=== PATIENT | female | born 1960 | race American Indian/Alaskan Native ===

== ENCOUNTER 2022-01-26 16:05 | Emergency (ER) | payer OTHER ==
--- NOTE | 2022-01-26 16:12 | Emergency Department Report ---
ED General Adult HPI - General Chief complaint: Altered Mental Status Stated complaint: where am i Time Seen by Provider: 01/26/22 16:06 Source: patient, EMS (Verbal report received from emergency medical services. EMS documentation not available at time of chart dictation ), RN notes reviewed (Nursing notes unavailable at my time to review) Mode of arrival: Stretcher Limitations: Altered Mental Status - History of Present Illness Initial comments: The patient was evaluated in the emergency department for symptoms described in the history of present illness. He/she was evaluated in the context of the global COVID-19 pandemic, which necessitated consideration that the patient might be at risk for infection with the virus that causes COVID-19. Institutional protocols and algorithms that pertain to the evaluation of patients at risk for COVID-19 are in a state of rapid change based on information released by regulatory bodies including the CDC and federal and state organizations. These policies and algorithms were followed during the patient's care in the emergency department. Please note that these policies, procedures and recommendations changed on a rapid basis. This is a 61-year-old female. She may have a past medical history of TIA or stroke. The details of the remainder of her past medical history are unclear at this time. She is brought to the hospital by emergency medical services with an EMS articulated complaint of confusion, speech disturbance, left-sided weakness, possible code stroke. EMS reports normal Accu-Chek and unremarkable vital signs in the field. In the emergency room, the patient has an unremarkable and appropriate Accu-Chek. The patient is awake, moving 4 extremities, without facial droop, and she is able to clearly enunciate her own name and her family members name. The patient denies physical pain. EMS reports to myself that the patient is moving her left side appears much improved than when compared to her initial presentation. At the moment, the patient is confused, and not able to describe the qualitative nature of symptoms, exacerbating factors, relieving factors or aggravating factors. At the moment, she is not accompanied by friends or family for collateral information or additional history. EMS reports last known well time is approximately 30 minutes PT arrival to this emergency department -: This evening Location: left, upper extremity Consistency: other Improves with: other Worsens with: other Associated Symptoms: other - Related Data Previous Rx's Medication Instructions Recorded Last Taken Type Aspirin [Aspirin BABY CHEW TAB] 81 mg PO QDAY #30 tab.chew 09/11/22 Unknown Rx Allergies Allergy/AdvReac Type Severity Reaction Status Date / Time lisinopril Allergy Angioedema Verified 01/26/22 16:47 Sulfa (Sulfonamide Allergy Unknown Verified 01/26/22 16:46 Antibiotics) ED Review of Systems ROS: Stated complaint: STROKE Other details as noted in HPI Comment: Unobtainable due to pts medical conditions (Patient denies physical pain. Review of systems as per EMS) Neurological: weakness, confusion ED Past Medical Hx - Medications Home Medications: Home Medications Medication Instructions Recorded Confirmed Last Taken Type Aspirin [Aspirin BABY CHEW TAB] 81 mg PO QDAY #30 tab.chew 01/26/22 Unknown Rx ED Physical Exam - General Limitations: Altered Mental Status General appearance: in no apparent distress, anxious, obese - Head Head exam: Present: atraumatic, normocephalic - Eye Eye exam: Present: normal appearance, EOMI. Absent: nystagmus - ENT ENT exam: Present: normal exam, normal orophraynx, mucous membranes moist, no rmal external ear exam - Neck Neck exam: Present: normal inspection, full ROM. Absent: tenderness, meningismus - Respiratory Respiratory exam: Present: normal lung sounds bilaterally. Absent: respiratory distress, wheezes, rales, rhonchi, stridor, decreased breath sounds - Cardiovascular Cardiovascular Exam: Present: regular rate, normal rhythm, normal heart sounds. Absent: bradycardia, tachycardia, irregular rhythm, systolic murmur, diastolic murmur, rubs, gallop - GI/Abdominal GI/Abdominal exam: Present: soft. Absent: distended, tenderness, guarding, rebound, rigid, pulsatile mass - Extremities Exam Extremities exam: Present: normal inspection, other (2+ pulses noted in the bilateral upper and lower extremities. There is no palpable cord. negative Homans sign. Muscular compartments are soft. The pelvis is stable.). Absent: pedal edema, calf tenderness - Back Exam Back exam: Present: normal inspection. Absent: tenderness, CVA tenderness (R), CVA tenderness (L), paraspinal tenderness, vertebral tenderness - Neurological Exam Neurological exam: Present: altered (Patient is awake and alert to name and follows commands. She is able to clearly enunciate her own name at her daughter's name.), other (There is no facial droop. The tongue is midline. EOMI. 5 out of 5 strength in 4 extremities. Sensation is intact to light touch in 4 extremities.) - Psychiatric Psychiatric exam: Present: flat affect - Skin Skin exam: Present: warm, dry, intact, normal color. Absent: rash ED Course Vital Signs 01/26/22 01/26/22 01/26/22 16:41 16:48 16:52 Temperature 98.8 F Pulse Rate 80 77 Respiratory 14 13 Rate Blood Pressure 109/62 O2 Sat by Pulse 95 95 95 Oximetry 01/26/22 01/26/22 01/26/22 17:00 17:16 17:30 Temperature Pulse Rate 80 99 H 73 Respiratory 13 24 12 Rate Blood Pressure 112/63 106/62 94/58 O2 Sat by Pulse 95 97 97 Oximetry 01/26/22 01/26/22 01/26/22 17:46 18:00 18:15 Temperature Pulse Rate 76 80 82 Respiratory 15 17 15 Rate Blood Pressure 91/58 114/70 96/63 O2 Sat by Pulse 94 96 96 Oximetry 01/26/22 18:30 Temperature Pulse Rate 79 Respiratory 15 Rate Blood Pressure 96/63 O2 Sat by Pulse 95 Oximetry - Reevaluation(s) Reevaluation #1: 01/26/22 16:44 Differential diagnosis, including but not limited to: TIA, pneumonia, UTI, electrolyte derangement, thyroid derangement, conversion disorder Assessment and plan: 61-year-old female with nonspecific alteration in mental status, protecting airway, awake to name, following commands, not in any acute distress without meningeal signs. She does not appear to have a disabling acute neurologic deficit that would require emergent tPA. Patient seen in conjunction with stroke neurology, Dr. Leslie, who agrees with this plan of care. CT scan brain, CT angiogram head and neck pending, x-ray of the chest shows nonspecific infiltrates. Urinalysis, laboratory studies pending. Reassess after initial data points. Patient likely will be admitted to our medical service for TIA versus encephalopathy. 01/26/22 17:05 Daughter at bedside. She endorses that mother appears to be at baseline The patient herself endorses no acute complaints. The patient is a [facility] patient, her [facility] #[id number] Home medications include losartan, Norvasc, cholesterol medicine, vitamin C Gummies, and alternating prednisone, 5 mg, 2.5 mg, etc. She has a history of chronic sarcoid. As per daughter, there are no COVID concerns and the patient is COVID-19 vaccinated. As per daughter, no fever, chills, nausea, vomiting, diarrhea. Patient is compliant with her medications. Daughter reports that the patient has a history of TIA, and that she is back to her baseline. The patient endorses this and feels like she is back to her baseline as well. 01/26/22 17:37 xr chest shows chronic sarcoid, she has clear lungs and is saturating at 98% on room air. both patient and daughter endorse no respiratory symptoms CT angiogram head and neck negative. CT scan brain negative. Urinalysis pending. Have placed a call to [facility]. Awaiting callback from [facility]. Awaiting urinalysis at this time 01/26/22 17:51 Discussed the patient's history, physical, laboratory studies and imaging studies with covering [facility] physician, Dr. Griffin Because patient is a [facility] patient, she will be likely transported to one of the [facility] facilities. I discussed this with the patient and family member, who are agreeable to this plan of care. Currently, the patient is stable for transfer for continuity of care. Should a bed not be available in a timely fashion within the next 2 hours, then patient is to remain here. Reevaluation #2: 01/26/22 19:38 Urinalysis not suggestive of UTI. Patient remains unchanged. Patient to be transported to [facility]. Patient daughter updated 01/26/22 20:22 Patient and daughter now states that they do not want to be transferred. They are going to leave AGAINST MEDICAL ADVICE. I discussed the risks, of leaving, including , disability, paralysis, loss of quality of life, and stroke. I discussed this with the patient and daughter. The patient in my opinion does not understand the implications of her actions. However, her daughter is at the bedside, indicates that she will make decisions for the daughter, Ms Reilly Seth. The patient's daughter is awake, alert, oriented, of sound mind, and exhibits decision-making capacity. The aforementioned risks of leaving AMA are discussed with the patient's daughter, patient, with nurse Alma Souza, present as a witness. [facility] is updated. They will try to get her a follow-up appointment tomorrow. Discussed with patient and daughter that they may return to the emergency room at any point time, if they so desire 01/26/22 20:24 ED Medical Decision Making - Lab Data Result diagrams: 01/26/22 16:50 01/26/22 16:50 - EKG Data -: EKG Interpreted by Me EKG shows normal: sinus rhythm - EKG Data When compared to previous EKG there are: previous EKG unavailable 01/26/22 16:45 The EKG is interpreted at 16: 33 Sinus rhythm, with a rate of 76 bpm. Normal axis, normal P wave axis, QTC 4 5 4 ms, and left ventricular hypertrophy. There is poor R wave progression. There are nonspecific T wave abnormalities. This is an abnormal EKG. This is not a STEMI. There is no prior for comparison - Radiology Data Radiology results: pending, report reviewed, image reviewed CTA HEAD WITH CONTRAST 01/26/2022 HISTORY: Confusion, left-sided weakness, now resolved. COMPARISON: None. TECHNIQUE: All CT scans at this location are performed using CT dose reduction for ALARA by means of automated exposure control.. 3-D/MIP reformats postprocessed. Percentage stenosis is determined by direct quantitative measurements of diseased internal carotid artery diameter compared with normal distal internal carotid artery reference segments or by criteria similar to NASCET where applicable. CONTRAST: 100 ml of Omnipaque 350 FINDINGS: CTA HEAD: Intracranial vertebral arteries: No significant abnormality. Basilar artery: No significant abnormality. Posterior cerebral arteries: No significant abnormality. Intracranial internal carotid arteries: No significant abnormality. Anterior cerebral arteries: No significant abnormality. Middle cerebral arteries: No significant abnormality. Dural venous sinuses:Not optimally opacified. No significant abnormality. Additional findings: None. IMPRESSION: 1. No significant abnormality. Signer Name: Luiz Josue MD Signed: 01/26/2022 4:02 PM Workstation Name: [id number] CHEST 1 VIEW 01/26/2022 4:30 PM INDICATION / CLINICAL INFORMATION: Confusion with TIA. COMPARISON: None available. FINDINGS: SUPPORT DEVICES: None. HEART / MEDIASTINUM: No significant abnormality. LUNGS / PLEURA: Increased interstitial prominence with bilateral pulmonary opacities No pneumothorax. Signer Name: Johnnie Hess MD Signed: 01/26/2022 3:41 PM Workstation Name: [id number] CT BRAIN: 01/26/2022 INDICATION / CLINICAL INFORMATION: TIA, left-sided deficits, now resolved. COMPARISON: None available. FINDINGS: BRAIN/INTRACRANIAL STRUCTURES: Unenhanced CT images of the brain demonstrate no evidence of acute abnormality. Ventricles and sulci are prominent in size, consistent with diffuse cerebral atrophy. Extensive chronic white matter hypoattenuation is present throughout the cerebral hemispheric white matter. There is evidence of chronic lacunar changes in the basal ganglia and thalami bilaterally. There are no abnormal extra-axial fluid collections. There is no evidence of hemorrhage. EXTRACRANIAL STRUCTURES: Unremarkable. IMPRESSION: No evidence of acute abnormality. Extensive chronic changes. All CT scans at this location are performed using dose reduction to ALARA by means of automated exposure control. Signer Name: Luiz Josue MD Signed: 01/26/2022 3:57 PM CTA NECK WITH CONTRAST 01/26/2022 INDICATION / CLINICAL INFORMATION: Left-sided deficits, now resolved and confusion. COMPARISON: None. TECHNIQUE: Routine CTA of the neck is performed. 3-D/MIP reformats were postprocessed. Percentage stenosis is determined by direct quantitative measurements of diseased internal carotid artery diameter compared with normal distal internal carotid artery reference segments or by criteria similar to NASCET where applicable. All CT scans at this location are performed using CT dose reduction for ALARA by means of automated exposure control. CONTRAST: 100 ml of Omnipaque 350 FINDINGS: Carotid bifurcations: No significant abnormality. Carotid arteries: Tortuosity of cervical internal carotid arteries noted. Otherwise unremarkable Cervical vertebral arteries: No significant abnormality. Aortic arch: No significant abnormality. None. IMPRESSION: No significant abnormality. Signer Name: Luiz Josue MD Signed: 01/26/2022 3:59 PM Workstation Name: [id number] Critical care attestation.: If time is entered above; I have spent that time in minutes in the direct care of this critically ill patient, excluding procedure time. ED Disposition Clinical Impression: TIA (transient ischemic attack) Disposition: 07 LEFT AGAINST MEDICAL ADVICE Is pt being admited?: No Does the pt Need Aspirin: No Condition: Undetermined Instructions: Transient Ischemic Attack, [id number] Additional Instructions: As we discussed, you have left the hospital/emergency room AGAINST MEDICAL ADVICE. By leaving, you risked , disability, paralysis, permanent loss of quality of life. The ER is open 24 hours a day, 7 days a week. It never closes. Please return to the emergency room right away if and when you change your mind. If you decide not to return to the emergency room, please follow-up with the listed physician referrals as soon as possible. Referrals: ERIC PEREZ MD [Staff Physician] - [facility] [Provider Group] - [facility] Forms: AMA Form
--- NOTE | 2022-01-26 16:34 | Emergency Department Report ---
Blank Doc - Documentation Documentation: [facility] Consult Note # Demographics Consult Type: Acute Stroke Level 1 (0-4.5 hrs) Patient Location: Emergency Room First Name: Melvina Last Name: Jw Date of : 1960 Age: 61 Gender: Female Facility: [facility] Time of Initial Page (Eastern Time): 01/26/2022, 16:06 Time of Return Call (Eastern Time): 01/26/2022, 16:06 # HPI History: 61 year old female who presents with dysarthria and AMS. EMS felt there was left sided weakness but none noted by ED provider. Patient poor historian, states she presents as she is not feeling well. Not able to provide more history than that. Last Known Normal: 30 mins ago # Scores Level of Consciousness 1a: [0] = Alert; keenly responsive LOC Questions 1b: [1] = Answers one correctly LOC Commands 1c: [0] = Performs both tasks correctly Best Gaze 2: [0] = Normal Visual 3: [0] = No visual loss Facial Palsy 4: [0] = Normal symmetrical movements Motor Arm Left 5a: [0] = No drift Motor Arm Right 5b: [0] = No drift Motor Leg Left 6a: [0] = No drift Motor Leg Right 6b: [0] = No drift Limb Ataxia 7: [0] = Absent Sensory 8: [0] = Normal Best Language 9: [0] = No aphasia Dysarthria 10: [0] = Normal Extinction and Inattention 11: [0] = No abnormality NIHSS Total: 1 # Exam Additional Exam Findings: slow to respond but answers all questions appropriately. Slightly confused. # PMH-FH-SH Past Medical History: hypertension Social History: non-smoker non-drinker no drugs lives with family # Data Head CT: no bleed preliminarily reviewed by me, please refer to radiology read for official reading # Assessment Impression: Non-focal exam with mainly AMS type of a picture. Follows commands and answers questions for the most part. No focality noted on exam. Does not meet tpa criteria. Differential broad: toxic/metabolic/infection vs. stroke. # Plan Thrombolytic/Intervention: NOT IV Thrombolysis or IA Intervention candidate Thrombolytic Exclusion (< 3 hour window): Individualized disability discussion had with the patient and/or family, and they have determined the current deficits to be non-disabling and do not wish to proceed with thrombolytic Intraarterial Exclusion: cta pending Blood Pressure Management: IV fluid bolus Target Blood Pressure: SBP < 220 DBP < 105 Labs: CBC comprehensive metabolic panel hemoglobin A1c lipid panel troponin TSH ua Imaging: (urgency: STAT): CT Head without contrast CT Angiogram Head and CT Angiogram Neck Imaging: (urgency: routine): MRI Brain without contrast Diagnostic Test: echo with bubble study Medication: aspirin 81 mg daily start statin with goal of LDL < 70 Other: If patient has any neurological deterioration please call me back immediately permissive hypertension telemetry monitoring I have discussed my recommendations with the referring provider Permissive HTN for 24 hours # Demographics First Name: Melvina Last Name: Jw Facility: [facility]
--- NOTE | 2022-01-26 16:45 | XRay Report ---
CHEST 1 VIEW 01/26/2022 4:30 PM INDICATION / CLINICAL INFORMATION: Confusion with TIA. COMPARISON: None available. FINDINGS: SUPPORT DEVICES: None. HEART / MEDIASTINUM: No significant abnormality. LUNGS / PLEURA: Increased interstitial prominence with bilateral pulmonary opacities No pneumothorax. Signer Name: Johnnie Hess MD Signed: 01/26/2022 4:41 PM Workstation Name: [id number]
--- NOTE | 2022-01-26 17:01 | Cat Scan Report ---
CT BRAIN: 01/26/2022 INDICATION / CLINICAL INFORMATION: TIA, left-sided deficits, now resolved. COMPARISON: None available. FINDINGS: BRAIN/INTRACRANIAL STRUCTURES: Unenhanced CT images of the brain demonstrate no evidence of acute abn ormality. Ventricles and sulci are prominent in size, consistent with diffuse cerebral atrophy. Extensive chronic white matter hypoattenuation is present throughout the cerebral hemispheric white m atter. There is evidence of chronic lacunar changes in the basal ganglia and thalami bilaterally. There are no abnormal extra-axial fluid collections. There is no evidence of hemorrhage. EXTRACRANIAL STRUCTURES: Unremarkable. IMPRESSION: No evidence of acute abnormality. Extensive chronic changes. All CT scans at this location are performed using dose reduction to ALARA by means of automated expos ure control. Signer Name: Luiz Josue MD Signed: 01/26/2022 4:57 PM Workstation Name: [id number]
--- NOTE | 2022-01-26 17:04 | Cat Scan Report ---
CTA NECK WITH CONTRAST 01/26/2022 INDICATION / CLINICAL INFORMATION: Left-sided deficits, now resolved and confusion. COMPARISON: None. TECHNIQUE: Routine CTA of the neck is performed. 3-D/MIP reformats were postprocessed. Percentage st enosis is determined by direct quantitative measurements of diseased internal carotid artery diameter compared with normal distal internal carotid artery reference segments or by criteria similar to SHERIE CET where applicable. All CT scans at this location are performed using CT dose reduction for ALARA b y means of automated exposure control. CONTRAST: 100 ml of Omnipaque 350 FINDINGS: Carotid bifurcations: No significant abnormality. Carotid arteries: Tortuosity of cervical internal carotid arteries noted. Otherwise unremarkable Cervical vertebral arteries: No significant abnormality. Aortic arch: No significant abnormality. None. IMPRESSION: No significant abnormality. Signer Name: Luiz Josue MD Signed: 01/26/2022 4:59 PM Workstation Name: [id number]
--- NOTE | 2022-01-26 17:06 | Cat Scan Report ---
CTA HEAD WITH CONTRAST 01/26/2022 HISTORY: Confusion, left-sided weakness, now resolved. COMPARISON: None. TECHNIQUE: All CT scans at this location are performed using CT dose reduction for ALARA by means of automated exposure control.. 3-D/MIP reformats postprocessed. Percentage stenosis is determined by d irect quantitative measurements of diseased internal carotid artery diameter compared with normal dis [place] internal carotid artery reference segments or by criteria similar to NASCET where applicable. CONTRAST: 100 ml of Omnipaque 350 FINDINGS: CTA HEAD: Intracranial vertebral arteries: No significant abnormality. Basilar artery: No significant abnormality. Posterior cerebral arteries: No significant abnormality. Intracranial internal carotid arteries: No significant abnormality. Anterior cerebral arteries: No significant abnormality. Middle cerebral arteries: No significant abnormality. Dural venous sinuses:Not optimally opacified. No significant abnormality. Additional findings: None. IMPRESSION: 1. No significant abnormality. Signer Name: Luiz Josue MD Signed: 01/26/2022 5:02 PM Workstation Name: [id number]
[2022-01-26 17:20] LABS: Basophils % (Auto) 0.8 % (0.0-1.8); Eosinophils % (Auto) 1.1 % (0.0-4.3); Hemoglobin 11.6 gm/dl (10.1-14.3); Lymphocytes # (Auto) 1.2 K/mm3 (1.2-5.4); Lymphocytes % (Auto) 24.9 % (13.4-35.0); Mean Corpuscular HGB Conc 31 % (30-34); Mean Corpuscular Volume 70 fl (79-97); Monocytes # (Auto) 0.6 K/mm3 (0.0-0.8); Monocytes % (Auto) 12.7 % (0.0-7.3); Platelet Count 184 K/mm3 (140-440); Red Blood Count 5.26 M/mm3 (3.65-5.03); Red Cell Distribution Width 16.9 % (13.2-15.2)
[2022-01-26 17:24] LABS: Alanine Aminotransferase 12 units/L (7-56); BUN/Creatinine Ratio 12; Blood Urea Nitrogen 14 mg/dL (7-17); Calcium 8.7 mg/dL (8.4-10.2); Hemolysis Index 16
[2022-01-26 17:26] LABS: Creatine Kinase MB < 1.0 ng/mL (0.0-4.0)
[2022-01-26 17:41] LABS: INR 0.92 (0.87-1.13); Partial Thromboplastin Time 27.2 Sec. (24.2-36.6); Thrombin Time 19.2 Sec. (15.1-19.6)
[2022-01-26] MEDS ORDERED: ASPIRIN 81 MG TAB CHEW PO ONE (17:45)
[2022-01-26] MEDS ORDERED: SODIUM CHLORIDE 0.9% 500 ML 500 ML IV ONE (17:51)
[2022-01-26 19:06] LABS: Bacteria,Urine 1+ /HPF (Negative); Mucus,Urine FEW /HPF
[2022-01-26 19:12] LABS: Amphetamine Screen,Urine Negative; Benzodiazepines Screen,Urine Negative; Cannabinoid Screen,Urine Negative; Cocaine Screen,Urine Negative; Methadone Screen,Urine Negative; Opiate Screen,Urine Negative
[2022-01-26 19:13] LABS: Color,Urine Yellow (Yellow)
[2022-01-26] MEDS ORDERED: SODIUM CHLORIDE 0.9% 1000 ML 1,000 ML IV ONE (19:40)
[2022-01-26 21:02] VITALS: BP 133/78
--- NOTE | 2022-01-28 09:55 | Electrocardiograph Report ---
[facility] Test Date: 2022-01-26 Test Time: 16:33:03 Pat Name: LILIANA BESS Department: Room: Gender: F Trigonometry Teacher: OSCAR : 1960 Requested By: NAZIA HAIRSTON Order Number: [id number] Reading MD: Gunner Menchaca Measurements Intervals [place] Rate: 76 P: 62 MA: 150 QRS: 23 QRSD: 84 T: -32 QT: 404 QTc: 454 Interpretive Statements Sinus rhythm Probable left atrial enlargement Nonspecific T abnormalities, diffuse leads No previous ECG available for comparison Electronically Signed On 01-28-2022 9:55:22 EDT by Gunner Menchaca
== END 2022-01-26 21:01 | disposition left against medical advice (07) ==
LOC: ED 16:05
DX: G45.9 Transient cerebral ischemic attack, unspecified (principal)
CPT/HCPCS: 36415; 70450; 70496; 70498; 71045; 80053; 80307; 81001; 82550; 82553; 84443; 84484; 85025; 85610; 85670; 85730; 87086; 93005; 99285; J7040; Q9967; 80320; G0480